=== PATIENT | male | born 1965 | race Caucasian/White ===

== ENCOUNTER → 2023-02-09 18:27 | Outpatient (CLI) | payer MEDICAID, SELFPAY ==
[2023-02-09 17:06] LABS: Alanine Aminotransferase 36 U/L (12-78); Albumin Level 4.7 g/dl (3.5-5.0); Albumin/Globulin Ratio 2.2 (1.1-1.8); Alkaline Phosphatase 151 U/L (38-126); Anion Gap 18.2 mEq/L (5-15); Aspartate Amino Transferase 33 U/L (17-59); Bilirubin,Total 0.5 mg/dl (0.2-1.3); Blood Urea Nitrogen 22 mg/dl (9-20); Calcium 8.8 mg/dl (8.4-10.2); Carbon Dioxide 24 mmol/L (22.0-30.0); Chloride 99 mmol/L (98-107); Chol/HDL Ratio 4.8 (1-3.5); Cholesterol 213 mg/dl (140-200); Estimated Glomerular Filt Rate 87 ml/min (>60); GFR (African American) 106 ML/MIN (>60); Globulin 2.1 g/dL (1.3-3.2); Glucose 95 mg/dl (74-100); HDL Cholesterol 44 mg/dl (40-60); Potassium 4.2 mmoL/L (3.5-5.1); Sodium 137 mmol/L (136-145); Total Protein,Serum 6.8 g/dl (6.3-8.2)
[2023-02-09 17:13] LABS: Basophils % 0.5 % (0.1-2.0); Eosinophils # 0.1 K/mm3 (0.0-0.4); Eosinophils % 1.8 % (0.1-12.0); Hematocrit 41.5 % (42.0-52.0); Lymphocytes # 1.8 K/mm3 (0.7-4.5); Lymphocytes % 29.3 % (10-50); Mean Corpuscular HGB Conc 33.7 g/dL (31.8-35.4); Mean Corpuscular Hemoglobin 29.6 pg (27.0-31.2); Mean Corpuscular Volume 87.8 fl (80-94); Mean Platelet Volume 8.7 fl (7.4-10.4); Monocytes # 0.3 K/mm3 (0.1-1.0); Monocytes % 4.3 % (1.7-9.3); Neutrophils # 3.9 K/mm3 (1.8-7.8); Neutrophils % 64.1 % (37.0-80.0); Platelet Count 169 K/mm3 (142-424); Red Blood Count 4.73 M/mm3 (4.60-6.20); Red Cell Distribution Width 13.9 % (11.5-17.5)
[2023-02-09 17:17] LABS: Direct LDL Cholesterol 81.13 mg/dL (100-129)
[2023-02-09 17:33] LABS: Triglycerides 503 mg/dl (30-150)
[2023-02-09 17:58] LABS: Hemoglobin A1C 5.9 % (4.0-6.0)
== END ==
LOC: LAB.DROPOF 18:27
PROVIDERS: PCP Family Medicine; Visit Provider Family Medicine
DX: E78.5 Hyperlipidemia, unspecified (principal)
CPT/HCPCS: 80053; 80061; 83036; 85025

== ENCOUNTER 2023-10-19 16:46 | Outpatient (CLI) | payer MEDICAID, SELFPAY ==
[2023-10-19 16:24] LABS: Basophils % 0.6 % (0.1-2.0); Eosinophils # 0.1 K/mm3 (0.0-0.4); Eosinophils % 1.9 % (0.1-12.0); Hematocrit 42.1 % (42.0-52.0); Hemoglobin 14.3 g/dL (14.1-18.0); Lymphocytes # 1.7 K/mm3 (0.7-4.5); Lymphocytes % 28.4 % (10-50); Mean Corpuscular Hemoglobin 30.2 pg (27.0-31.2); Mean Platelet Volume 9.7 fl (7.4-10.4); Monocytes # 0.3 K/mm3 (0.1-1.0); Monocytes % 4.8 % (1.7-9.3); Neutrophils # 3.9 K/mm3 (1.8-7.8); Neutrophils % 64.4 % (37.0-80.0); Platelet Count 135 K/mm3 (142-424); Red Blood Count 4.72 M/mm3 (4.60-6.20)
[2023-10-19 16:37] LABS: Alanine Aminotransferase 27 U/L (12-78); Albumin Level 4.7 g/dl (3.5-5.0); Alkaline Phosphatase 91 U/L (38-126); Anion Gap 11.9 mEq/L (5-15); Aspartate Amino Transferase 29 U/L (17-59); Bilirubin,Total 0.4 mg/dl (0.2-1.3); Blood Urea Nitrogen 21 mg/dl (9-20); Calcium 8.8 mg/dl (8.4-10.2); Carbon Dioxide 27 mmol/L (22.0-30.0); Chloride 107 mmol/L (98-107); Chol/HDL Ratio 9.4 (1-3.5); Cholesterol 254 mg/dl (140-200); Estimated Glomerular Filt Rate 69 ml/min (>60); GFR (African American) 83 ML/MIN (>60); Globulin 2.3 g/dL (1.3-3.2); Glucose 100 mg/dl (74-100); HDL Cholesterol 27 mg/dl (40-60); Potassium 4.9 mmoL/L (3.5-5.1); Sodium 141 mmol/L (136-145)
[2023-10-19 16:45] LABS: Triglycerides 638 mg/dl (30-150)
[2023-10-19 17:11] LABS: Hemoglobin A1C 5.6 % (4.0-6.0)
== END 2023-10-19 23:59 ==
LOC: LAB.DROPOF 16:46
PROVIDERS: PCP Family Medicine; Visit Provider Family Medicine
DX: E78.5 Hyperlipidemia, unspecified (principal)
CPT/HCPCS: 80053; 80061; 83036; 85025

== ENCOUNTER 2024-02-04 18:00 | Outpatient (CLI) | payer MEDICAID, SELFPAY ==
[2024-02-04 16:30] LABS: Alanine Aminotransferase 27 U/L (12-78); Albumin Level 4.6 g/dl (3.5-5.0); Albumin/Globulin Ratio 2.2 (1.1-1.8); Alkaline Phosphatase 100 U/L (38-126); Anion Gap 10.5 mEq/L (5-15); Aspartate Amino Transferase 33 U/L (17-59); Bilirubin,Total 0.5 mg/dl (0.2-1.3); Blood Urea Nitrogen 22 mg/dl (9-20); Calcium 9.2 mg/dl (8.4-10.2); Carbon Dioxide 25 mmol/L (22.0-30.0); Chloride 112 mmol/L (98-107); Chol/HDL Ratio 4.3 (1-3.5); Cholesterol 175 mg/dl (140-200); Estimated Glomerular Filt Rate 69 ml/min (>60); GFR (African American) 83 ML/MIN (>60); Globulin 2.1 g/dL (1.3-3.2); Glucose 108 mg/dl (74-100); HDL Cholesterol 41 mg/dl (40-60); Potassium 4.5 mmoL/L (3.5-5.1); Sodium 143 mmol/L (136-145); Total Protein,Serum 6.7 g/dl (6.3-8.2); Triglycerides 297 mg/dl (30-150); VLDL Cholesterol 59 mg/dL (0-40)
[2024-02-04 16:41] LABS: Direct LDL Cholesterol 82.74 mg/dL (100-129)
[2024-02-04 17:37] LABS: Hemoglobin A1C 5.9 % (4.0-6.0)
== END 2024-02-04 23:59 | disposition home or self-care (01) ==
LOC: LAB.DROPOF 02-05 12:54
PROVIDERS: PCP Family Medicine; Visit Provider Family Medicine
DX: E78.5 Hyperlipidemia, unspecified (principal); Z79.899 Other long term (current) drug therapy
CPT/HCPCS: 80053; 80061; 83036

== ENCOUNTER 2024-04-24 08:50 | Emergency (ER) | payer MEDICAID, SELFPAY ==
[2024-04-24 09:03] VITALS: BP 147/96; PULSE 68; RESP 16; TEMP 36.3; O2SAT 98; BMI 26.4
[2024-04-24 09:15] VITALS: PULSE 66; O2SAT 96
[2024-04-24 09:31] VITALS: BP 122/85; PULSE 62; O2SAT 96
[2024-04-24] MEDS: FLUORESCEIN SODIUM 1MG STRIP 1 MG OP (09:41)
[2024-04-24] MEDS: TET/DIPHTH/PERT-ADULT 0.5ML SYRINGE 0.5 ML IM (09:41)
[2024-04-24] MEDS: TETRACAINE 0.5% OPTH SOL 15ML OP (09:41)
[2024-04-24] MEDS: NEOMYCIN-BACIT-POLYM OPHTH OINT 3.5GM TUBE OP (09:42)
[2024-04-24 09:48] VITALS: BP 122/85; PULSE 63; RESP 16; TEMP 36.3; O2SAT 98
--- NOTE | 2024-04-24 11:16 | ED_ITS ---
Discharge Plan Disposition Patient Disposition: Home, Self-Care Condition: Good Prescriptions Prescriptions: No Action omega 0-dor-ywo-fish oil [Fish Oil] 1,000 mg (120 mg-180 mg) capsule 1 cap PO TID buspirone 10 mg tablet 10 mg PO BID Qty: 180 2RF Zyrtec 10 mg capsule 10 mg PO DAILY PRN (Reason: allergies) 90 Days Qty: 90 2RF diclofenac sodium 75 mg tablet,delayed release (DR/EC) 75 mg PO BID 90 Days Qty: 180 0RF fluticasone propionate 50 mcg/actuation spray,suspension 1 spray intranasal DAILY 30 Days Qty: 16 3RF Rx Instructions: administer into each nostril gemfibrozil 600 mg tablet 600 mg PO BID Qty: 180 2RF omeprazole 40 mg capsule,delayed release(DR/EC) 40 mg PO DAILY Qty: 90 2RF sertraline 100 mg tablet 100 mg PO DAILY Qty: 90 2RF simvastatin 80 mg tablet 80 mg PO HS 90 Days Qty: 90 0RF tizanidine 2 mg tablet 2 mg PO TID PRN (Reason: muscle spasticity) 30 Days Qty: 90 2RF Referrals Follow up/Referrals: Ruben Estes MD [Primary Care Provider] - See instructions Activity Restrictions/Add. Instructions Additional Instructions/Restrictions: You were evaluated in the emergency department. You had a metallic foreign body in your left eye. You have a residual rust ring. Please use your antibiotic ointment provided to you in your left eye every 6 hours while awake. Use this for the next 4 days or until cleared by an eye doctor. Take Tylenol and ibuprofen at home as needed for pain. Return to the emergency department for new or worsening symptoms, such as significant worsening of pain, visual disturbance, or other concerns. You can follow up with whoever you would like, but one option is Dr. Franks - [address] [place] [address] - Clinical Impressions Clinical Impression: Foreign body of left eye, Corneal rust ring of left eye Stand Alone Forms Stand Alone Forms: Work/School Release Instructions Patient Instructions: DI for Corneal Foreign Body-Eye Discharge ED Provider: Malika Shannon General Adult HPI General Chief complaint: Eye Problems Stated complaint: something in eye 04/22 left eye pain/sweeling/red Time Seen by Provider: 04/24/24 09:11 Mode of Arrival: Ambulatory Source of Information: Patient and Spouse Limitations: No Limitations Description of Symptoms (Recalled from ER Triage Doc. by RN): pt states he was working in his shop on Thursday and thinks he got something in his L eye. pt c/o photophobia and states that he has flushed it without any relief. he took some tylenol around 0300 without any relief. pt is unsure when his last tetnus vaccine was. pt declines receiving one today. History of Present Illness HPI narrative: This patient is a 59-year-old male with a history of hyperlipidemia and depression presenting to the emergency department for evaluation with concern for foreign body in his left eye. He notes that he has flushed his eye at home with no relief. This has been going on for approximately 3 days. He states he started to develop some light sensitivity. No visual disturbance noted. He was working with metal in his shop, so he thinks that it is a piece of metal in his eye. He is unsure when his last tetanus shot was. Related Data Home Medications Medication Instructions Recorded Confirmed omega 3-bup-mdo-fish oil 1,000 mg 1 cap PO TID 06/13/22 02/04/24 (120 mg-180 mg) capsule (Fish Oil) Previous Rx's Medication Instructions Recorded buspirone 10 mg tablet 10 mg PO BID #180 tabs 02/04/24 cetirizine 10 mg capsule (Zyrtec) 10 mg PO DAILY PRN allergies 90 02/04/24 days #90 caps diclofenac sodium 75 mg 75 mg PO BID 90 days #180 tabs 02/04/24 tablet,delayed release fluticasone propionate 50 1 spray intranasal DAILY 30 days 02/04/24 mcg/actuation nasal #16 grams spray,suspension gemfibrozil 600 mg tablet 600 mg PO BID #180 tabs 02/04/24 omeprazole 40 mg capsule,delayed 40 mg PO DAILY #90 caps 02/04/24 release sertraline 100 mg tablet 100 mg PO DAILY #90 tabs 02/04/24 simvastatin 80 mg tablet 80 mg PO HS 90 days #90 tabs 02/04/24 tizanidine 2 mg tablet 2 mg PO TID PRN muscle spasticity 04/04/24 30 days #90 tabs Allergies Allergy/AdvReac Type Severity Reaction Status Date / Time No Known Allergies Allergy Verified 04/24/24 09:16 [facility] Disclaimer: The information contained in this section may have been updated after the patient was seen, as this information can be updated by other users. Medical History Depression Anxiety Chronic GERD Hypertension Hyperlipidemia Surgical History Previous back surgery H/O hernia repair History of tonsillectomy Family History Mother Coronary artery disease Social History Smoking Status: Never smoker alcohol intake: never current occupational status: retired Travel in the last 8 weeks: None ROS Obtained: Yes All systems reviewed & no additional complaints except as documented Physical Exam General General appearance: alert and in no apparent distress Head Head exam: atraumatic and normocephalic Eye Eye exam: Present PERRL, EOMI and conjunctival injection Expanded Eye Exam Slit lamp exam: performed Eyelids: bilateral: normal inspection Pupils: Bilateral: regular, round Sclera/Conjunctival: left: foreign body Anterior chamber: bilateral: normal inspection Both Eyes Image: 2 1. Small metallic foreign body IOP (R) in mmH IOP (L) in mmH ENT ENT exam: Present normal exam, normal oropharynx, mucous membranes moist and normal external ear exam Neck Neck exam: Present normal inspection, full ROM and trachea midline; Absent tenderness Chest Chest inspection: Present normal inspection and symmetric chest wall rise; Absent tenderness Respiratory Respiratory exam: Present normal lung sounds bilaterally; Absent respiratory distress, wheezes, stridor or accessory muscle use Cardiovascular Cardiovascular exam: Present regular rate and normal rhythm Abdominal Exam Abdominal exam: Present soft; Absent distention, tenderness or guarding Extremities Exam Extremities exam: Present normal inspection, full ROM and normal capillary refill; Absent tenderness or edema Back Exam Back exam: Present normal inspection and full ROM; Absent tenderness Neurological Exam Neurological exam: Present alert, oriented X3, CN II-XII intact and normal gait; Absent motor sensory deficit Psychiatric Psychiatric exam: Present normal affect and normal mood Skin Skin exam: Present warm and dry Medical Decision Making Medical Records Medical records reviewed: Yes I reviewed the patient's medical records. Manuel Inquiry Pt receiving controlled substance: No Vital Signs: 04/24/24 09:03 04/24/24 09:15 04/24/24 09:31 Temperature 97.4 F L Temperature Source Oral Pulse Rate 66 62 Pulse Rate [Left] 68 Respiratory Rate 16 Blood Pressure 122/85 Blood Pressure [Right Arm] 147/96 H Blood Pressure Mean [Right Arm] 113 Blood Pressure Source [Right Arm] Automatic Cuff Blood Pressure Position [Right Arm] Sitting 02 Sat by Pulse Oximetry 98 96 96 Oxygen Delivery Method Room Air Room Air 04/24/24 09:48 Temperature 97.4 F L Temperature Source Pulse Rate 63 Pulse Rate [Left] Respiratory Rate 16 Blood Pressure 122/85 Blood Pressure [Right Arm] Blood Pressure Mean [Right Arm] Blood Pressure Source [Right Arm] Blood Pressure Position [Right Arm] 02 Sat by Pulse Oximetry Oxygen Delivery Method Room Air Lab Data Lab results reviewed: Yes I reviewed the patient's lab results. Orders (Tests/Meds): ED MEDICATIONS Discontinued Medications Generic Name Dose Route Start Last Admin Trade Name Ashia PRN Reason Stop Dose Admin Fluorescein Sodium 1 mg 04/24/24 09:31 04/24/24 09:41 Fluorescein Sodium 1mg Strip OP 04/24/24 09:32 1 mg ONCE ONE Administration Neomycin/Polymyxin/Bacitracin 0 gm 04/24/24 09:31 04/24/24 09:42 Upfjmpel-Qlpaf-Gjnmk Ophth Oint 3.5gm Tube OP 04/24/24 09:32 3.5 gm ONCE ONE Administration Tetanus/Reduced Diphtheria/Acell Pertussis 0.5 ml 04/24/24 09:25 04/24/24 09:41 Tet/Diphth/Pert-Adult 0.5ml Syringe IM 04/24/24 09:26 0.5 ml .ONCE ONE Administration Tetracaine HCl 0 ml 04/24/24 09:31 04/24/24 09:41 Tetracaine 0.5% Opth Priya 15ml OP 04/24/24 09:32 1 ml ONCE ONE Administration Medical Decision Narrative: In summary, this patient is a 59-year-old male presenting to the Emergency Department for evaluation of foreign body in his left eye. Differential diagnoses considered include but are not limited to metallic foreign body, rust ring, corneal abrasion, corneal ulceration, endophthalmitis. Ruling out the most morbid conditions drove assessment. On exam, the patient is well-appearing. He has normal vision. He has normal intraocular pressures. I did stain his eyes with fluorescein and noted scattered uptake of the left cornea but no large abrasions or ulcerations. His foreign body was successfully removed with a 25-gauge needle after informed consent was obtained. Patient tolerated this well with no complications. He did have residual rust ring, which I was not able to completely remove. Given this, I feel he would benefit from very close follow-up with an eye doctor. I gave patient instructions for this. He was given Tdap booster here and he was also given ophthalmic antibiotic ointment to take home. Given reassuring exam, he is to be appropriate for discharge with instructions for use of the antibiotic ointment and supportive management as well as close follow-up. Strict return precautions were given, and he was discharged after all questions were answered. Procedures Risk/Benefits of Procedure(s) Were Explained: Yes Foreign Body Removal Time Out Performed: Yes Site: other (Left eye) Description of foreign body: other (Piece of metal) Sedation/Analgesia: none Technique: other (Removal with a 25-gauge needle) Confirmed by:: direct visualization Complications: none Post-procedure exam: awake, alert, normal BP, normal HR and normal O2 sat Neurovascular: no change from pre-procedure Critical Care Critical Care Time Critical Care Time: No
== END 2024-04-24 09:48 | disposition home or self-care (01) ==
PROVIDERS: Emergency Provider Emergency Medicine; PCP Family Medicine
DX: T15.92XA Foreign body on external eye, part unspecified, left eye, initial encounter (principal); H16.022 Ring corneal ulcer, left eye; W44.E0XA Non-magnetic metal object unspecified, entering into or through a natural orifice, initial encounter; Z23 Encounter for immunization
CPT/HCPCS: 65220; 90471; 90715; 99283

== ENCOUNTER 2024-10-19 09:50 | Outpatient (CLI) | payer MEDICAID, SELFPAY ==
[2024-10-19 16:36] LABS: Basophils % 0.8 % (0.1-2.0); Eosinophils # 0.1 K/mm3 (0.0-0.4); Eosinophils % 1.3 % (0.1-12.0); Hematocrit 39.7 % (42.0-52.0); Hemoglobin 13.7 g/dL (14.1-18.0); Lymphocytes # 1.8 K/mm3 (0.7-4.5); Lymphocytes % 38.5 % (10-50); Mean Corpuscular HGB Conc 34.5 g/dL (31.8-35.4); Mean Corpuscular Hemoglobin 31.3 pg (27.0-31.2); Mean Corpuscular Volume 90.6 fl (80-94); Mean Platelet Volume 11.9 fl (7.4-10.4); Monocytes # 0.3 K/mm3 (0.1-1.0); Monocytes % 6.8 % (1.7-9.3); Neutrophils # 2.5 K/mm3 (1.8-7.8); Neutrophils % 52.4 % (37.0-80.0); Platelet Count 133 K/mm3 (142-424); Red Blood Count 4.38 M/mm3 (4.60-6.20); Red Cell Distribution Width 14.4 % (11.5-17.5); White Blood Count 4.7 K/mm3 (4.8-10.8)
[2024-10-19 16:56] LABS: Albumin Level 5.5 g/dl (3.5-5.0); Chloride 103 mmol/L (98-107); Potassium 4.6 mmoL/L (3.5-5.1); Sodium 139 mmol/L (136-145)
[2024-10-19 16:59] LABS: Alanine Aminotransferase 22 U/L (12-78); Albumin/Globulin Ratio 2.8 (1.1-1.8); Alkaline Phosphatase 90 U/L (38-126); Anion Gap 15.6 mEq/L (5-15); Aspartate Amino Transferase 30 U/L (17-59); Bilirubin,Total 0.6 mg/dl (0.2-1.3); Blood Urea Nitrogen 34 mg/dl (9-20); Carbon Dioxide 25 mmol/L (22.0-30.0); Cholesterol 180 mg/dl (140-200); Estimated Glomerular Filt Rate 69 ml/min (>60); GFR (African American) 83 ML/MIN (>60); Glucose 76 mg/dl (74-100); Total Protein,Serum 7.5 g/dl (6.3-8.2); Triglycerides 157 mg/dl (30-150); VLDL Cholesterol 31 mg/dL (0-40)
[2024-10-19 17:00] LABS: Chol/HDL Ratio 3.9 (1-3.5); HDL Cholesterol 46 mg/dl (40-60)
[2024-10-19 17:10] LABS: Hemoglobin A1C 5.6 % (4.0-6.0)
[2024-10-19 17:16] LABS: Direct LDL Cholesterol 95.09 mg/dL (100-129)
[2024-10-19 18:21] LABS: Prostate Specific Ag Screen 0.3 ng/ml (0.0-4.0)
[2024-10-19 18:37] LABS: Thyroid Stimulating Hormone 1.69 uIU/mL (0.465-4.68)
== END 2024-10-19 23:59 | disposition home or self-care (01) ==
LOC: LAB.DROPOF 10-20 11:20
PROVIDERS: PCP Family Medicine; Visit Provider Family Medicine
DX: E78.5 Hyperlipidemia, unspecified (principal); Z12.5 Encounter for screening for malignant neoplasm of prostate
CPT/HCPCS: 80053; 80061; 83036; 84443; 85025; G0103

== ENCOUNTER 2025-01-09 09:51 | Day surgery (SDC) | payer MEDICAID, SELFPAY ==
[2025-01-09 09:56] VITALS: BMI 27.1
[2025-01-09 10:13] VITALS: BP 119/64; PULSE 64; RESP 16; TEMP 36.3; O2SAT 97
[2025-01-09] MEDS: LACTATED RINGERS 1000ML 1,000 ML 50 ML IV (10:18)
--- NOTE | 2025-01-09 10:33 | P.PNANES_ITS ---
[facility] Disclaimer: The information contained in this section may have been updated after the patient was seen, as this information can be updated by other users. Medical History Depression Anxiety Chronic GERD Hypertension Hyperlipidemia Surgical History Previous back surgery H/O hernia repair History of tonsillectomy Family History Mother Coronary artery disease Social History Smoking Status: Never smoker alcohol intake: never substance use type: denies use current occupational status: retired Travel in the last 8 weeks: None Have you lived/traveled outside US in past 30 days?: No Contact w/someone who lives/traveled outside US past 30 days?: No Exposure to someone with infectious disease in past 14 days?: No Do you have a fever (greater than 100.4 F or 38 C)?: No Have you tested positive for COVID-19: No Exposed to someone with COVID-19 in past 14 days?: No Do you have a sore throat?: No Do you have a cough?: No Do you have any weakness?: No Do you have any diarrhea?: No Are you experiencing any unusual bleeding?: No Do you have any muscle aches/pain?: No Do you have any abdominal pain?: No Are you experiencing loss of taste or smell?: No [facility] Anesthesia Checklist Patient Identification Patient Identification: Arm Band Structural Data Admitted From: Home Planned Operative Procedure/s: EGD Consent for Planned Operative Procedure(s) Verified: Yes Verified Documents: Surgical Consent and History and Physical NPO Status Verified Time NPO: 00:00 Additional verifications Anesthesia Reactions: No Airway Assessment Mallampati Score:: Class II C-Spine Mobility Assessed: Yes TMJ Mobility Assessed: Yes Dentition: Good Dentition Neurological Assessment Level of Consciousness: Awake, Alert and Appropriate Anesthesia Plan Anesthesia Risk discussed: Yes Anesthesia Plan: Verified ASA Class: II Anesthesia Type: MAC
--- NOTE | 2025-01-09 11:36 | EXP.HP ---
History of Present Illness *Admission Date: 01/09/25 *Reason for visit:: Dyspepsia and GERD *History of present illness: Mr. Diego is a 59-year-old gentleman who is here for diagnostic EGD secondary to dyspepsia and GERD. The examination is deemed medically necessary for diagnostic EGD. The patient has been seen, interviewed and examined prior to the procedure by both myself and the anesthesia provider. [facility] Disclaimer: The information contained in this section may have been updated after the patient was seen, as this information can be updated by other users. Medical History Depression Anxiety Chronic GERD Hypertension Hyperlipidemia Surgical History Previous back surgery H/O hernia repair History of tonsillectomy Family History Mother Coronary artery disease Social History Smoking Status: Never smoker alcohol intake: never substance use type: denies use current occupational status: retired Travel in the last 8 weeks: None Have you lived/traveled outside US in past 30 days?: No Contact w/someone who lives/traveled outside US past 30 days?: No Exposure to someone with infectious disease in past 14 days?: No Do you have a fever (greater than 100.4 F or 38 C)?: No Have you tested positive for COVID-19: No Exposed to someone with COVID-19 in past 14 days?: No Do you have a sore throat?: No Do you have a cough?: No Do you have any weakness?: No Do you have any diarrhea?: No Are you experiencing any unusual bleeding?: No Do you have any muscle aches/pain?: No Do you have any abdominal pain?: No Are you experiencing loss of taste or smell?: No Other Medical History Have you received the Pneumonia Vaccine: No Review of Systems Review of Systems Review of systems (narrative): Negative *Cardiovascular Comments: Negative *Gastrointestinal Comments: Negative *Genitourinary Comments: Negative *Musculoskeletal Comments: Negative *Neurologic Comments: Negative Meds Home Medications and Allergies Home Medications ?Medication ?Instructions ?Recorded ?Confirmed ?Type omega 4-vqo-ins-fish oil 1,000 mg 1 cap PO TID 06/13/22 01/09/25 History (120 mg-180 mg) capsule (Fish Oil) buspirone 10 mg tablet 10 mg PO BID #180 tabs 10/28/24 01/09/25 Rx cetirizine 10 mg capsule (Zyrtec) 10 mg PO DAILY PRN allergies 90 10/28/24 01/09/25 Rx days #90 caps diclofenac sodium 75 mg 75 mg PO BID 90 days #180 tabs 10/28/24 01/09/25 Rx tablet,delayed release gemfibrozil 600 mg tablet 600 mg PO BID #180 tabs 10/28/24 01/09/25 Rx omeprazole 40 mg capsule,delayed 40 mg PO DAILY #90 caps 10/28/24 01/09/25 Rx release sertraline 100 mg tablet 100 mg PO DAILY #90 tabs 10/28/24 01/09/25 Rx simvastatin 80 mg tablet 80 mg PO HS 90 days #90 tabs 10/28/24 01/09/25 Rx fluticasone propionate 50 1 spray intranasal DAILY PRN 11/10/24 01/09/25 History mcg/actuation nasal Allergy Symptoms spray,suspension tizanidine 2 mg tablet See Rx Instructions .Route 12/30/24 01/09/25 Rx .COMPLEX #90 tabs New Prescriptions to Start Prescriptions: Allergies Allergy/AdvReac Type Severity Reaction Status Date / Time No Known Allergies Allergy Verified 01/09/25 10:09 Exam Data for Last 24 hours Vital signs and Labs for Last 24 Hours: Temp Pulse Resp BP Pulse Ox O2 Del Method 97.4 F L 64 16 119/64 97 Room Air 01/09/25 10:13 01/09/25 10:13 01/09/25 10:13 01/09/25 10:13 01/09/25 10:13 01/09/25 10:13 I & O for Last 24 hours: Intake & Output 01/06/25 01/07/25 01/08/25 01/09/25 23:59 23:59 23:59 23:59 Weight 194 lb 0.108 oz *Routine HEENT Exam Head: Present normocephalic Eye: Present EOMI and PERRL ENT: Present mucous membranes moist *Routine Neck Exam Neck: Present supple *Routine Respiratory Exam Respiratory: Present CTA bilaterally *Routine Cardiovascular Exam Cardiovascular: Present RRR *Routine Abdominal Exam Abdominal: Present soft and normoactive bowel sounds; Absent tenderness *Routine Rectal Exam Rectal:: deferred *Routine Genitalia Exam Genitalia:: deferred *Routine Extremities Exam Extremities: Absent cyanosis, clubbing or edema *Routine Skin Exam Skin: Present warm; Absent rash *Routine Neurological Exam Neurological: Present alert and oriented X3 Assessment and Plan *Assessment and plan (1) Epigastric pain: Status: Acute Category: Medical Code(s): R10.13 - Epigastric pain (2) Heartburn: Status: Acute Category: Medical Code(s): R12 - Heartburn (3) Chronic GERD: Status: Acute Category: Medical Code(s): K21.9 - Gastro-esophageal reflux disease without esophagitis Plan A/P: 1. Dyspepsia, heartburn, chronic GERD and bloating is the preprocedural diagnosis. The patient will be anesthetized/sedated using MAC sedation. The patient has been seen and examined. Cardiac and lung assessment prior to the examination is stable. Proceed with planned diagnostic EGD
--- NOTE | 2025-01-09 11:49 | P.PCN_ITS ---
[facility] Procedure Note Date: 01/09/25 Time: 11:57 Procedure Note:: Upper Endoscopy Procedure Report: Esophagogastroduodenoscopy with cold biopsies and TTS balloon dilation Endoscopost: Aquilino Regan II, MD Referring Physician: Ruben Estes MD Date of Procedure: January 09, 2025 Equipment: Olympus GIF 190 standard upper endoscope Sedation: MAC sedation Indications: Mr. Diego is a 59-year-old gentleman with longstanding GERD and dyspepsia. He was diagnosed with GERD and a hiatal hernia in the early s more than 30 years ago. The patient does state that his symptoms have gradually worsened. He does report bloating and occasional early satiety. He reports no nausea. He also reports occasional dysphagia to breads and pretzels. He has been on omeprazole 40 mg daily and if he forgets to take this he immediately gets heartburn. He has been on diclofenac twice daily for 5 to 6 years. He always elevates the head of his bed at nighttime. He does have some obstipation/constipation and may skip a couple of days without a bowel movement. He has not improved since starting Citrucel. He does have straining and incomplete defecation with excessive wiping. He reports no nausea. He is a little bit concerned about long-term PPI therapy. Procedure: Prior to the procedure, a history and physical exam was performed, and patient's medications and allergies were reviewed. The risks, benefits and alternatives of the sedation and procedure were discussed with the patient. All questions were answered and informed consent was obtained. The patient was brought to the procedure room. Patient identification and proposed procedure were verified by the physician and the nurse. The patient was placed in a left lateral decubitus position and the scope was passed under direct vision. Throughout the procedure, the patient's blood pressure, pulse, and oxygen saturations were monitored continuously. The upper GI endoscopy was accomplished without difficulty. The patient tolerated the procedure well. Findings: The scope was passed directly into the upper esophagus and advanced to the third portion of the duodenum. The post bulbar duodenum and duodenal bulb were normal with normal mucosa and conniventes. The scope was withdrawn through a normal duodenal bulb and pylorus into the stomach. There was linear reactive gastropathy of the antrum. The body and fundus of the stomach were normal. Upon retroflexion there was a very small 1 to 2 cm sliding hiatal hernia. Biopsies were taken from the antrum. The scope was then withdrawn into the esophagus. There was no evidence of reflux esophagitis or Smallwood's. Biopsies were taken from the GE junction. There were tertiary contractions and evidence of mild esophageal dysmotility. The entire esophagus was dilated to 60 Mongolian/20 mm with a TTS hydrostatic balloon. There was no resistance. The remainder of the esophageal mucosa was normal. Impression: 1. Nonerosive GERD with mild esophageal dysmotility and very small sliding 1 to 2 cm hiatal hernia 2. Linear reactive gastropathy of antrum (mild) Plan: I will follow-up the biopsies. The patient does have functional dyspepsia and functional GERD. I do feel that most of his symptoms of dyspepsia are related to and driven by lower intestinal gas pressure gradients/high gas pressure buildup resulting in backflow of bile and peptic fluid from the duodenum into the stomach (duodenal reflux). This gas production (carbon dioxide, hydrogen, methane, etc.) from the lower intestinal tract is the byproduct of colonic bacterial fermentation. This colonic fermentation occurs when there is more carbohydrate (dietary starches, sugars and high residue plant fiber) substrate that does not get digested (in the middle or small intestine) or occurs when there is colonic fecal buildup and colonic bacterial overgrowth. This indeed leads to bloating and the gas pressure buildup with gas pressure gradients that do drive backflow, reflux and dyspepsia. I would encourage a fiber bowel regimen (combined MiraLAX plus Citrucel) and ccrb-hbc-kxyxkle herbal Iberogast twice daily. We will discuss additional dietary measures and treatment options.
[2025-01-09 12:03] VITALS: BP 99/64; PULSE 60; RESP 16; TEMP 36.2; O2SAT 93
[2025-01-09 12:13] VITALS: BP 111/71; PULSE 58; RESP 16; TEMP 36.2; O2SAT 95
[2025-01-09 12:23] VITALS: BP 121/77; PULSE 60; RESP 16; TEMP 36.2; O2SAT 95
[2025-01-09 12:33] VITALS: BP 116/79; PULSE 60; RESP 16; TEMP 36.2; O2SAT 95
[2025-01-09 12:43] VITALS: BP 121/81; PULSE 62; RESP 16; TEMP 36.2; O2SAT 97
== END 2025-01-09 12:43 | disposition home or self-care (01) ==
PROVIDERS: PCP Family Medicine; Visit Provider Internal Medicine Gastroenterology
PROC: 0DJ08ZZ Inspection of Upper Intestinal Tract, Via Natural or Artificial Opening Endoscopic (ICD-10-PCS; CPT 43239; principal; 2025-01-09 11:30)
DX: R13.10 Dysphagia, unspecified (principal); K31.9 Disease of stomach and duodenum, unspecified; K44.9 Diaphragmatic hernia without obstruction or gangrene; K22.4 Dyskinesia of esophagus; R10.13 Epigastric pain; K21.9 Gastro-esophageal reflux disease without esophagitis; R14.0 Abdominal distension (gaseous); R68.81 Early satiety
CPT/HCPCS: 43239; 43249; C1726; J7120

== ENCOUNTER 2025-04-21 09:23 | Outpatient (CLI) | payer MEDICAID, SELFPAY ==
[2025-04-21 17:41] LABS: Hematocrit 40.1 % (42.0-52.0); Hemoglobin 14.2 g/dL (14.1-18.0); Immature Granulocytes % 0.2 %; Mean Corpuscular HGB Conc 35.4 g/dL (31.8-35.4); Mean Corpuscular Hemoglobin 32.3 pg (27.0-31.2); Mean Corpuscular Volume 91.1 fl (80-94); Nucleated Red Blood Cells % 0 %; Platelet Count 124 K/mm3 (142-424); Red Blood Count 4.40 M/mm3 (4.60-6.20); Red Cell Distribution Width-SD 43.8 fL; White Blood Count 4.2 K/mm3 (4.8-10.8)
[2025-04-21 18:13] LABS: Alanine Aminotransferase 19 U/L (12-78); Albumin Level 5.0 g/dl (3.5-5.0); Albumin/Globulin Ratio 2.3 (1.1-1.8); Alkaline Phosphatase 87 U/L (38-126); Anion Gap 13.6 mEq/L (5-15); Aspartate Amino Transferase 23 U/L (17-59); Bilirubin,Total 0.5 mg/dl (0.2-1.3); Blood Urea Nitrogen 21 mg/dl (9-20); Calcium 9.9 mg/dl (8.4-10.2); Carbon Dioxide 25 mmol/L (22.0-30.0); Chloride 107 mmol/L (98-107); Creatinine,Serum 1.00 mg/dl (0.66-1.25); Estimated Glomerular Filt Rate 76 ml/min (>60); GFR (African American) 93 ML/MIN (>60); Globulin 2.2 g/dL (1.3-3.2); Glucose 111 mg/dl (74-100); HDL Cholesterol 34 mg/dl (40-60); Potassium 4.6 mmoL/L (3.5-5.1); Total Protein,Serum 7.2 g/dl (6.3-8.2)
[2025-04-21 18:29] LABS: Cholesterol 351 mg/dl (140-200); Triglycerides 661 mg/dl (30-150)
[2025-04-21 18:30] LABS: Sodium 139 mmol/L (136-145)
[2025-04-21 18:43] LABS: Thyroid Stimulating Hormone 0.72 uIU/mL (0.465-4.68)
[2025-04-23 11:14] LABS: Hepatitis B Surface Antigen Negative (Negative)
--- OUTSIDE RECORDS SUMMARY | 2025-04-24 10:31 | XMS_ITS | Clinical Summary ---
Author Organization Healthcare Address [address] [place] [address] Care Team Providers Care Farmworker [employer] Name Role Phone Nilsa Zambrano Primary Care Provider [phone] Family History Medical History Relation Name Comments Stroke Other Relation Name Status Comments Other Social History Tobacco Use Types Packs/Day Years Used Date Smoking Tobacco: Never Sex and Gender Information Value Date Recorded Sex Assigned at Not on file Legal Sex Male 6:20 PM EDT Gender Identity Not on file Sexual Orientation Not on file Last Filed Vital Signs Vital Sign Reading Time Taken Comments Blood Pressure - - Pulse - - Temperature - - Respiratory Rate - - Oxygen Saturation - - Inhaled Oxygen Concentration - - Weight 97.1 kg (214 lb) 12/31/2016 1:11 PM EDT Height 182.9 cm (6') 12/31/2016 1:11 PM EDT Body Mass Index 29.02 12/31/2016 1:11 PM EDT Plan of Treatment Not on file Care Teams [employer]worker [employer] Relationship Specialty Start Date End Date Nilsa Zambrano PA [address] [place] [address] PCP - General 02/15/21
--- OUTSIDE RECORDS SUMMARY | 2025-04-24 10:31 | XMS_ITS | Clinical Summary ---
Author Organization [facility] Address [address] [place] [address] Care Team Providers Care Parking Patroller Name Role Phone Lukas Yu MD Primary Care Provider [phone] Social History Tobacco Use Types Packs/Day Years Used Date Smoking Tobacco: Never Assessed Sex and Gender Information Value Date Recorded Sex Assigned at Not on file Legal Sex Male 4:42 PM EST Gender Identity Not on file Sexual Orientation Not on file Plan of Treatment Health Maintenance Due Date Last Done Comments CT Colonography 1966 Colonoscopy 1966 Colorectal Cancer Screening 1966 FIT-DNA 1966 FIT 1966 FOBT 1966 Sigmoidoscopy 1966 Hepatitis B (HepB) Vaccine ( 1 of 3 - 19+ 3-dose series) 1985 Tdap/Td Vaccine >11 yo (1 - Tdap) 1985 Pneumococcal Vaccines >50 yo (1 of 1 - PCV) 2016 Shingles (Shingrix) (1 of 2) 2016 Annual SDOH Screening 10/05/2024 Influenza Vaccine (#1) 2025 Haemophilus Influenzae Type B (Hib) Vaccine Aged Out No longer eligible b ased on patient's age to complete this topic Hepatitis A (HepA) Vaccine Aged Out N o longer eligible based on patient's age to complete this topic Meningococcal ACWY Aged Out No longer eligible based on patient's age to complete this topic Polio (IPV) Aged Out No longer eligi ble based on patient's age to complete this topic Rotavirus (RV) Vaccine Aged Out No lo nger eligible based on patient's age to complete this topic Care Teams Parking Patroller Relationship Specialty Start Date End Date Lukas Yu MD [address] [place] [address] [facility] - General 06/05/09
--- OUTSIDE RECORDS SUMMARY | 2025-04-24 10:31 | XMS_ITS | Clinical Summary ---
Author Organization [facility] Address [address] [place] [address] Care Team Providers Care Orchid Transplanter Name Role Phone Ruben Estes MD Primary Care Provider [phone]- [phone] Allergies No known active allergies Medications busPIRone (BUSPAR) 10 MG tablet 1 tablet. 06/13/2023 Active diclofenac (VOLTAREN) 75 MG EC tablet 08/13/2023 Active sertraline (ZOLOFT) 100 MG tablet 1 tablet. 06/13/2023 Active gemfibrozil (LOPID) 600 MG tablet Take 1 tablet by mouth. 06/13/2023 Active omeprazole (priLOSEC) 40 MG capsule 06/13/2023 Active simvastatin (ZOCOR) 80 MG tablet 06/18/2023 Active tiZANidine (ZANAFLEX) 2 MG tablet 1 tablet. 08/13/2023 Active Active Problems No known active problems Social History Tobacco Use Types Packs/Day Years Used Date Smoking Tobacco: Never Smokeless Tobacco: Never Alcohol Use Standard Drinks/Week Comments Never 0 (1 standard drink = 0.6 oz pur e alcohol) Abuse Screen Answer Date Recorded Feels Unsafe at Home or Work/School no 07/21/2023 Feels Threatened by Someone no 07/05 Does Anyone Try to Keep You From Having Contact with Others or Doing Things Outside Your Home? no 07/21/2023 Physical Signs of Abuse Present no 07/21/2023 Housing Stability Answer Date Recorded Current Living Arrangements Not on file 07/05 Potentially Unsafe Housing Conditions Not on earl e 07/14/2023 Family and Community Support Answer Marcos e Recorded Help with Day-to-Day Activities Not on file 07/14/2023 Lonely or Isolated Not on file 07/14/2023 Employment Answer Date Recorded Do you want help finding or keeping work or a antonio b? Not on file 07/14/2023 Disabilities Answer Date Recorded Concentrating, Remembering, or Making Decisions Difficulty Not on file 07/14/2023 Doing Errands Independently Difficulty Not on fi le 07/14/2023 Education Answer Date Recorded Help with school or training? Not on file Preferred Language Not on file 07/14/2023 Sex and Gender Information Value Date Recorded Sex Assigned at Not on file Legal Sex Male 10:50 AM EDT Gender Identity Not on file Sexual Orientation Not on file Last Filed Vital Signs Vital Sign Reading Time Taken Comments Blood Pressure 124/74 08/14/2023 10:28 AM EST Pulse 79 07/21/2023 3:49 PM EDT Temperature 36.8 C (98.2 F) 08/14/2023 10:28 AM EST Respiratory Rate 20 07/21/2023 3:49 PM EDT Oxygen Saturation 96% 07/21/2023 3:49 PM EDT Inhaled Oxygen Concentration - - Weight 93 kg (205 lb) 08/14/2023 10:28 AM EST Height 180.3 cm (5' 11 ) 08/14/2023 10:28 AM EST Body Mass Index 28.59 08/14/2023 10:28 AM EST Plan of Treatment Health Maintenance Due Date Last Done Comments TDAP/TD VACCINES (1 - Tdap) 1985 COLON CANCER SCREENING 5 YEAR SIGMOIDOSCOPY [address] COLONOGRAPHY 2011 FECAL OCCULT BLOOD TEST 2011 FIT Testing (1 year) 2011 Pneumococcal Vaccine 50+ (1 of 1 - PCV) 2016 ZOSTER VACCINE (1 of 2) 2016 ANNUAL PHYSICAL 08/14/2023 HEPATITIS C SCREENING 08/14/2023 COLOGUARD 03/25/2024 03/25/2021 COLORECTAL CANCER SCREENING 03/25/2024 COVID-19 Vaccine ( season) 2024 INFLUENZA VACCINE 07/05/2025 Insurance [employer] MEDICAID [place] Care Teams Orchid Transplanter Relationship Specialty Start Date End Date Ruben Estes MD [address] [place] [address] [address] [place] [address] PCP - General Family Medicine 07/21/23
== END 2025-04-21 23:59 | disposition home or self-care (01) ==
LOC: LAB.DROPOF 04-24 10:21
PROVIDERS: PCP Family Medicine; Visit Provider Family Medicine
DX: E78.5 Hyperlipidemia, unspecified (principal); E66.9 Obesity, unspecified; Z11.59 Encounter for screening for other viral diseases; I10 Essential (primary) hypertension
CPT/HCPCS: 80053; 80061; 84443; 85025; 87340

== ENCOUNTER 2025-07-31 08:35 | Outpatient (CLI) | payer MEDICAID, SELFPAY ==
[2025-07-31 17:54] LABS: Hematocrit 39.4 % (42.0-52.0); Hemoglobin 13.4 g/dL (14.1-18.0); Immature Granulocytes % 0 %; Mean Corpuscular HGB Conc 34.0 g/dL (31.8-35.4); Mean Corpuscular Hemoglobin 31.9 pg (27.0-31.2); Mean Corpuscular Volume 93.8 fl (80-94); Nucleated Red Blood Cells % 0 %; Platelet Count 136 K/mm3 (142-424); Red Blood Count 4.20 M/mm3 (4.60-6.20); Red Cell Distribution Width-SD 45.1 fL; White Blood Count 4.8 K/mm3 (4.8-10.8)
[2025-07-31 19:14] LABS: Alanine Aminotransferase 22 U/L (12-78); Albumin Level 4.0 g/dl (3.5-5.0); Albumin/Globulin Ratio 1.3 (1.1-1.8); Alkaline Phosphatase 102 U/L (38-126); Anion Gap 14.3 mEq/L (5-15); Aspartate Amino Transferase 25 U/L (17-59); Bilirubin,Total 0.8 mg/dl (0.2-1.3); Blood Urea Nitrogen 21 mg/dl (9-20); Calcium 9.1 mg/dl (8.4-10.2); Carbon Dioxide 25 mmol/L (22.0-30.0); Chloride 103 mmol/L (98-107); Cholesterol 282 mg/dl (140-200); Creatinine,Serum 1.00 mg/dl (0.66-1.25); Estimated Glomerular Filt Rate 76 ml/min (>60); GFR (African American) 93 ML/MIN (>60); Globulin 3.0 g/dL (1.3-3.2); Glucose 102 mg/dl (74-100); HDL Cholesterol 41 mg/dl (40-60); Potassium 4.3 mmoL/L (3.5-5.1); Sodium 138 mmol/L (136-145); Total Protein,Serum 7.0 g/dl (6.3-8.2); Triglycerides 192 mg/dl (30-150)
[2025-08-01 07:32] LABS: Hepatitis C Ab Qual. W/ RFX NEGATIVE (Negative)
--- OUTSIDE RECORDS SUMMARY | 2025-08-01 11:29 | XMS_ITS | Clinical Summary ---
Author Organization [facility] Address [address] [place] [address] Care Team Providers Care Legal Researcher Name Role Phone Ruben Estes MD Primary Care Provider [phone]- [phone] Allergies No known active allergies Medications busPIRone [...] COLOGUARD 03/25/2024 03/25/2021 COLORECTAL CANCER SCREENING 03/25/2024 INFLUENZA VACCINE 05/05/2025 Insurance [employer]ICAID [place] Care Teams Legal Researcher Relationship Specialty Start Date End Date Ruben Estes MD [address] [facility] PCP - General Family Medicine 07/21/23
--- OUTSIDE RECORDS SUMMARY | 2025-08-01 11:29 | XMS_ITS | Clinical Summary ---
Author Organization [facility] Address [address] [place] [address] Care Team Providers Care Hot Stick Man Name Role Phone Lukas Yu MD Primary Care Provider [phone] Social History Tobacco Use Types Packs/Day Years [...] SDOH Screening 10/05/2024 Influenza Vaccine (#1) 2025 RSV 50+ and (1 - 1 -dose 75+ series) 2041 Haemophilus Influenzae Type B (Hib) Vaccine Aged [...] age to complete this topic Care Teams Hot Stick Man Relationship Specialty Start Date End Date Lukas Yu MD [address] [place] [address] PCP - General 06/05/09
--- OUTSIDE RECORDS SUMMARY | 2025-08-01 11:29 | XMS_ITS | Clinical Summary ---
Author Organization [facility] Address [address] [place] [address] Care Team Providers Care Dietist Name Role Phone Nilsa Zambrano Primary Care Provider [phone] Family History Medical History Relation Name Comments [...] of Treatment Not on file Care Teams Dietist Relationship Specialty Start Date End Date Nilsa Zambrano PA [address] [place] [address] PCP - General 02/15/21
== END 2025-07-31 23:59 ==
LOC: LAB.DROPOF 08-01 11:23
PROVIDERS: PCP Family Medicine; Visit Provider Family Medicine
DX: E78.5 Hyperlipidemia, unspecified (principal); Z11.59 Encounter for screening for other viral diseases; Z11.4 Encounter for screening for human immunodeficiency virus [HIV]
CPT/HCPCS: 80053; 80061; 85025; 86803; 87389

== ENCOUNTER 2025-08-10 06:29 | Outpatient (CLI) | payer SELFPAY ==
--- OUTSIDE RECORDS SUMMARY | 2025-08-10 06:32 | XMS_ITS | Data Portability ---
Author Organization [facility] Address [address] [facility] [address] [place] [address] Assessment No assessment recorded. Plan of Treatment Reminders Order Date Submit Date Provider Last Modified By Organization Details Last Modified Time Details Appointments None recorded. Lab None recorded. Referral None recorded. Procedures None recorded. Surgeries None recorded. Imaging None recorded. Medication Orders Depo-Testo sterone 200 mg/mL intramuscu lar oil 2019 020 [id number], [address] [place] [address], [address], 0 12:59:56 Depo-Testo sterone 200 mg/mL intramuscu lar oil 2019 020 [id number], [address] [place] [address], [address], 0 07:51:19 Depo-Testo sterone 200 mg/mL intramuscu lar oil 2019 020 [id number], [address] [place] [address], [address], 0 09:08:30 Depo-Testo sterone 200 mg/mL intramuscu lar oil 2019 020 [facility], [address] [place] [address], [id number], 0 08:43:26 Depo-Testo sterone 200 mg/mL intramuscu lar oil 2019 020 [id number], [address] [place], [address], 0 10:57:10 Patient TargetsNo targets recorded. Patient InstructionsNo instructions recorded. Reason for Referral None Reported. Problems Name Problem SNOMED Code Status Onset Date Resolution Date Notes Provider Name and Address Organization Details Recorded Time Testosterone level below reference range 107849669 Active 2017 [facility] Ant [facility] 8 15:03:34 Problem Notes None recorded. Procedures Surgical History Date Name Laterality Status Provider Name and Address Organization Details Recorded Time Tonsillectomy completed [facility] 01/28/2018 15:04:10 Hernia Repair completed [facility] 01/28/2018 15:04:15 Imaging Results None recorded. Procedure Notes None recorded. Medical Equipment None Reported. Allergies No known drug allergies Medications Name Sig Start Date Stop Date Status Note LastModified by Organization Details LastModified Time Depo-Testos terone 200 mg/mL intramuscul ar oil Inject 1 mL every 3 weeks by intramusc ular route as directed for 14 days. 2019 active Not Available Not Available Not Avai lable Depo-Testad iol 2 mg-50 mg/mL intramuscul ar oil Inject 1.5 mL every 3 weeks by intramusc ular route as directed for 21 days. active Not Available Not Available No t Available escitalopra m 10 mg tablet Take 1 tablet every day by oral route. active Not Available Not Available No t Available tizanidine active Not Available Not Av ailable Not Available omeprazole active Not Available Not Av ailable Not Available Fish Oil active Not Available Not Avai lable Not Available pravastatin active Not Available Not A vailable Not Available Zyrtec 10 mg capsule Take by oral route. 05/17 completed Not Available Not Available Not Available AndroGel 20.25 mg/1.25 gram per pump act. (1.62 %) transdermal gel 2017 active Not Available Not Available Not Avai lable Flonase Allergy Relief active Not Available Not Available Not Available Vitals Date Recorded Body height Provider Name an d Address Organization Details Last Updated DateTime 01/12/2020 180.34 cm Belgica Puentes [facility] 01/12/2020 09:09:30 Social History None recorded. Functional Status None recorded. Mental Status None recorded. Family History Relationship Description Onset Age of this Age Resolved Age Notes LastModified by Organization Details LastModified Time Father No current problems or disability [email or web address] Not available 01/28 15:03:47 Mother No current problems or disability [email or web address] Not available 01/28 15:03:47 Medical History Condition Response Arthritis Y High Cholesterol Y Hypertension N Past Encounters Encounter ID Performer Location Encounter Start Date Encounter Closed Date Diagnosis/Indication Diagnosis SNOMED-CT Code Diagnosis ICD10 Code Diagnosis IMO Codes Diagnosis Note [id number] TREY POWERS MD [facility] [address] [facility],[place] [address] 01/28/2018 14:34:42 02/10/2018 09:53:17 Testicular hypofunction 683996103 E29.1 [id number] TREY POWERS MD [facility] [address] [address] 03/09/2018 08:26:59 03/09/2018 09:12:42 Testicular hypofunction 615807629 E29.1 [id number] TAYLOR FIGUEREDO JR, MD [facility] [address] [address] 04/01/2018 08:24:00 04/01/2018 09:02:59 Testosterone level below reference range 887402715 R79.89 [id number] TAYLOR FIGUEREDO JR, MD [facility] [address] [place] [address] 04/22/2018 08:38:36 04/22/2018 08:51:55 Testicular hypofunction 283799376 E29.1 [id number] GORGE GUILLEN MD [facility] [address] [place] [address] 05/14/2018 09:03:07 05/14/2018 09:33:03 Testicular hypofunction 372320595 E29.1 [id number] TAYLOR FIGUEREDO JR, MD [facility] [address] [place] [address] 0 05/28/2018 09:02:07 05/28/2018 09:20:08 Testosterone level below reference range 453818487 R79.89 [id number] TREY POWERS MD [facility] [address] [place] [address] 0 06/11/2018 08:33:24 06/11/2018 08:46:45 Testicular hypofunction 779178868 E29.1 [id number] GORGE GUILLEN MD [facility] [address] [place] [address] 0 06/18/2018 09:08:53 06/18/2018 09:21:56 Testosterone level below reference range 176327934 R79.89 [id number] TAYLOR FIGUEREDO JR, MD [facility] [address] [place] [address] 0 07/01/2018 08:24:15 07/01/2018 08:58:50 Testicular hypofunction [id number] E29.1 [id number] TAYLOR FIGUEREDO JR, MD [facility] [address] [place] [address] 0 07/22/2018 08:20:18 07/22/2018 08:48:53 Testicular hypofunction 947551105 E29.1 [id number] DINESH CONRAD MD [facility] [address] [place] [address] 0 08/13/2018 10:11:26 08/13/2018 10:26:34 Testicular hypofunction 974448769 E29.1 [id number] TREY POWERS MD [facility] [address] [place] [address] 0 08/24/2018 09:08:37 08/24/2018 09:19:51 Testicular hypofunction 291390337 E29.1 [id number] TAYLOR FIGUEREDO JR, MD [facility] [address] [place] [address] 09/03/2018 09:14:48 09/03/2018 09:49:52 Testicular hypofunction 430619690 E29.1 [id number] GORGE GUILLEN MD [facility] [address] [place] [address] 0 09/24/2018 12:27:07 09/24/2018 13:37:26 Testicular hypofunction 877108512 E29.1 [id number] TAYLOR FIGUEREDO JR, MD [facility] [address] [place] [address] 0 10/14/2018 08:56:25 10/14/2018 09:13:47 Testicular hypofunction 527157868 E29.1 [id number] TAYLOR FIGUEREDO JR, MD [facility] [address] [place] [address] 0 11/04/2018 08:18:10 11/04/2018 08:43:39 Testicular hypofunction 375923439 E29.1 [id number] TAYLOR FIGUEREDO JR, MD [facility] [address] [place] [address] 0 11/25/2018 08:26:18 11/25/2018 08:52:17 Testicular hypofunction [id number] E29.1 [id number] TAYLOR FIGUEREDO JR, MD [facility] [address] [place] [address] 0 12/16/2018 08:21:46 12/16/2018 08:41:59 Testicular hypofunction 030281702 E29.1 [id number] TAYLOR FIGUEREDO JR, MD [facility] [address] [place] [address] 0 01/13/2019 08:17:35 01/13/2019 08:59:13 Testicular hypofunction 972405519 E29.1 [id number] TAYLOR FIGUEREDO JR, MD [facility] [address] [place] [address] 02/03/2019 08:33:16 02/03/2019 08:41:30 Testicular hypofunction 683142722 E29.1 [id number] TAYLOR FIGUEREDO JR, MD [facility] [address] [place] [address] 02/24/2019 08:26:07 02/24/2019 09:05:55 Testicular hypofunction 285206446 E29.1 [id number] TAYLOR FIGUEREDO JR, MD [facility] [address] [place] [address] 03/17/2019 08:14:59 03/17/2019 08:25:40 Testicular hypofunction [id number] E29.1 [id number] TREY POWERS MD [facility] [address] [place], [place] [address] 04/08/2019 08:30:50 04/08/2019 09:02:05 Testicular hypofunction 785333193 E29.1 [id number] TAYLOR FIGUEREDO JR, MD [facility] [address] [address] 04/28/2019 08:05:22 04/28/2019 09:19:54 Testicular hypofunction 317492418 E29.1 [id number] GORGE GUILLEN MD [facility] [address] [place] [address] 05/09/2019 10:19:20 05/09/2019 10:45:41 Testicular hypofunction 060577586 E29.1 [id number] MD [facility] [address] [place] [address] 05/17/2019 08:50:25 05/17/2019 09:52:17 Testosterone level below reference range 400362269 R79.89 [id number] TAYLOR FIGUEREDO JR, MD [facility] [address] [place], [place] [address] 06/09/2019 08:35:22 06/09/2019 09:02:07 Testicular hypofunction [id number] E29.1 [id number] TAYLOR FIGUEREDO JR, MD [facility] [address] [place], [place] [id number] 06/30/2019 08:28:59 06/30/2019 09:12:36 Testicular hypofunction [id number] E29.1 [id number] TAYLOR FIGUEREDO JR, MD [facility] [address] [place] [address] 0 07/20/2019 08:58:08 07/20/2019 09:10:59 Testicular hypofunction [id number] E29.1 [id number] TAYLOR FIGUEREDO JR, MD [facility] [address] [place] [address] 0 08/01/2019 10:40:46 08/01/2019 11:11:01 Testicular hypofunction 950247427 E29.1 [id number] TAYLOR FIGUEREDO JR, MD [facility] [address] [place] [address] 0 08/11/2019 08:27:53 08/11/2019 09:11:27 Testicular hypofunction 312164225 E29.1 [id number] TAYLOR FIGUEREDO JR, MD [facility] [address] [place] [address] 0 08/25/2019 08:53:52 08/25/2019 09:04:26 Testicular hypofunction [id number] E29.1 [id number] TAYLOR FIGUEREDO JR, MD [facility] [address] [place] [address] 0 09/15/2019 08:11:33 09/15/2019 08:23:24 Testicular hypofunction 777955809 E29.1 [id number] TAYLOR FIGUEREDO JR, MD [facility] [address] [place] [address] 0 10/10/2019 08:46:02 10/10/2019 08:54:55 Testicular hypofunction [id number] E29.1 [id number] TAYLOR FIGUEREDO JR, MD [facility] [address] [place] [address] 11/03/2019 08:28:07 11/03/2019 09:05:02 Testicular hypofunction [id number] E29.1 [id number] TAYLOR FIGUEREDO JR, MD [facility] [address] [place] [address] 11/24/2019 08:19:05 11/24/2019 08:34:24 Testicular hypofunction 448303916 E29.1 [id number] TAYLOR FIGUEREDO JR, MD [facility] [address] [address] 12/22/2019 08:32:10 12/22/2019 08:44:58 Testicular hypofunction [id number] E29.1 [id number] TAYLOR FIGUEREDO JR, MD [facility] [address] [address] 01/12/2020 08:51:56 01/12/2020 09:07:44 Testicular hypofunction 367703073 E29.1 [id number] TAYLOR FIGUEREDO JR, MD [facility] [address] [address] 02/02/2020 08:24:05 02/02/2020 08:40:09 Testicular hypofunction [id number] E29.1 [id number] TAYLOR FIGUEREDO JR, MD [facility] [address] [address] 02/23/2020 08:28:11 02/23/2020 08:36:57 Testicular hypofunction [id number] E29.1 [id number] TAYLOR FIGUEREDO JR, MD [facility] [address] [address] 03/29/2020 08:27:12 03/29/2020 08:37:18 Testicular hypofunction 838868642 E29.1 [id number] TAYLOR FIGUEREDO JR, MD [facility] [address] [place] [address] 05/24/2020 08:12:11 05/24/2020 08:43:38 Testicular hypofunction 109959978 E29.1 Health Concerns Section Related Observation LastModified by Organization Detai ls LastModified Time None Recorded Concern Status LastModified by Organization Details LastModified Time None Recorded Advance Directives Directive None Recorded Payers Insurance Date Sequence Insurance Name Policy Number Policy Mares Covered Member ID Mares Member ID Guarantor Name 06/11/2020 1 [place] [id number] Diego [id number] Martell Diego
--- OUTSIDE RECORDS SUMMARY | 2025-08-10 06:32 | XMS_ITS | Clinical Summary ---
Author Organization [facility] Address [address] [place] [address] Care Team Providers Care Middleware Administrator Name Role Phone Ruben Estes MD Primary Care Provider [phone] Allergies No known active allergies Medications busPIRone [...] 05/05/2025 Insurance [employer] MEDICAID [place] Care Teams Middleware Administrator Relationship Specialty Start Date End Date Ruben Estes MD [address] [facility] PCP - General Family Medicine 07/21/23
--- OUTSIDE RECORDS SUMMARY | 2025-08-10 06:32 | XMS_ITS | Clinical Summary ---
Author Organization [facility] Address [address] [place] [address] Care Team Providers Care Director Of Respiratory Therapy Name Role Phone Lukas Yu MD Primary Care Provider [phone] Social History Tobacco Use Types Packs/Day Years [...] age to complete this topic Care Teams Director Of Respiratory Therapy Relationship Specialty Start Date End Date Lukas Yu MD [address] [place] [address] PCP - General 06/05/09
--- OUTSIDE RECORDS SUMMARY | 2025-08-10 06:32 | XMS_ITS | Clinical Summary ---
Author Organization [facility] Address [address] [place] [address] Care Team Providers Care Manager Clinical Name Role Phone Nilsa Zambrano Primary Care Provider [phone] Family History Medical History Relation Name Comments [...] of Treatment Not on file Care Teams Manager Clinical Relationship Specialty Start Date End Date Nilsa Zambrano PA [address] [place] [address] PCP - General 02/15/21
--- NOTE | 2025-08-10 07:00 | CT_ITS ---
APPROVED REPORT Day Care Home Mother: CLINICAL INDICATION Coronary risk evaluation and stratification TECHNIQUE Image Acquisition: A 128 slice MDCT scanner (Codealikea View) was used for data acquisition. A noncontrast coronary calcium scan was performed. A CT attenuation threshold of 130 Hounsfield units (HU) was used for the detection of calcium in contiguous voxels of 1 sq mm in area to be counted as individual lesions. A tube voltage of 120 KVp was used. The patient received no medications prior to the coronary calcium CT. Image Reconstruction Transaxial images were reconstructed at 0.67 mm slide thickness. Data was reviewed interactively on an advanced workstation capable of 2 and 3-dimensional displays in all conventional reconstruction formats, including multiplanar reformations, maximum intensity projections, curved multiplanar reformations, and volume rendered reconstructions. When applicable, selected routine images describing the relevant coronary anatomy and pathology were saved and sent to PACS. Complications None Technical Quality Overall image quality was good. Total DLP (Dose-Length Product) is 161.9 mGy-cm. The reported value represents the total of one or more individual components during the CT acquisition of this date and at this time, and as such, the same value may appear in more than one CT report depending on the interpreting/reporting physicians. COMPARISON None FINDINGS CT Coronary Calcium Scoring LMA (Left Main Artery) = 0 LAD (Left Anterior Descending) = 52 LCX (Left Coronary Circumflex) = 33 RCA (Right Coronary Artery) = 17 Total Calcium Score = 102 using the AJ-130 method. There is mild calcification in the aortic valve. IMPRESSION -Coronary artery calcification is present. -Total Calcium Score (Agatston Score) = 102 using the AJ-130 method. -The observed calcium score of 102 is at 71st percentile for subjects of the same age, sex, and race/ethnicity. The interpretation of the calcium heart score is based on the following continuum*: 0 = no calcified plaque detected (risk of coronary artery disease is very low ??? less than 5%) 1-10 = calcium detected in extremely minimal levels (risk of coronary diseases is still low ??? less than 10%) 11-100 = mild levels of plaque detected with certainty (mild or minimal narrowing of heart arteries is likely) 101-400 = definite,at least moderate levels of plaque detected (relatively high risk of a heart attack within 3-5 years) >401-999 = extensive levels of plaque detected (high risk of heart attack, high levels of vascular disease are present, high likelihood of at least one significant coronary narrowing) *The calcium heart score quantifies the burden of coronary calcification/plaque in the coronary arteries. The calcium heart score does not evaluate the presence or the burden of non-calcified (i.e. soft) plaque. The coronary and cardiac findings of this Coronary Calcium CT were reviewed, reported, and signed by Dimas Kirkland MD (Telegraph Installer). Conclusion Electronically signed by : Vida Kirkland MD 08/14/2025 12:42:40
== END 2025-08-10 23:59 | disposition home or self-care (01) ==
PROVIDERS: PCP Family Medicine; Visit Provider Family Medicine
DX: I10 Essential (primary) hypertension (principal); E78.5 Hyperlipidemia, unspecified; I25.10 Atherosclerotic heart disease of native coronary artery without angina pectoris
CPT/HCPCS: 75571

== ENCOUNTER 2025-09-09 23:43 | Emergency (ER) | payer OTHER, SELFPAY ==
[2025-09-09 23:51] VITALS: BP 140/89; PULSE 62; RESP 18; TEMP 37.1; O2SAT 96; BMI 31.5
--- OUTSIDE RECORDS SUMMARY | 2025-09-09 23:51 | XMS_ITS | Clinical Summary ---
Author Organization [facility] Address [address] [place] [address] Care Team Providers Care Plaster Form Maker Name Role Phone Ruben Estes MD Primary Care Provider [phone]- [phone] Allergies No known active allergies Medications busPIRone [...] 05/05/2025 Insurance [employer] [place]ICAID [place] Care Teams Plaster Form Maker Relationship Specialty Start Date End Date Ruben Estes MD [address] [facility] [address] [facility] PCP - General Family Medicine 07/21/23
--- OUTSIDE RECORDS SUMMARY | 2025-09-09 23:51 | XMS_ITS | Data Portability ---
Author Organization [facility] JEFFERSON CLOSED Address [address] [facility] [address] [place] [address] Assessment No assessment recorded. Plan of Treatment Reminders Order Date Submit Date Provider Last Modified By Organization Details Last Modified Time Details Appointments None recorded. Lab None recorded. Referral None recorded. Procedures None recorded. Surgeries None recorded. Imaging None recorded. Medication Orders Depo-Testo sterone 200 mg/mL intramuscu lar oil 2019 020 [facility][id number], [address] [place] [address], [id number], 0 12:59:56 Depo-Testo sterone 200 mg/mL intramuscu lar oil 2019 020 [id number], [address] [place] [address], [id number], 0 07:51:19 Depo-Testo sterone 200 mg/mL intramuscu lar oil 2019 020 [id number], [address] [place] [address], [id number], 0 09:08:30 Depo-Testo sterone 200 mg/mL intramuscu lar oil 2019 020 [id number], [address] [place] [address], [id number], 0 08:43:26 Depo-Testo sterone 200 mg/mL intramuscu lar oil 2019 020 [facility] #[id number], [address] [place], [address], 0 10:57:10 Patient TargetsNo targets recorded. Patient InstructionsNo instructions recorded. Reason for Referral None Reported. Problems Name Problem SNOMED Code Status Onset Date Resolution Date Notes Provider Name and Address Organization Details Recorded Time Testosterone level below reference range 048883263 Active 2017 [facility] 8 15:03:34 Problem Notes None recorded. Procedures Surgical History Date Name Laterality Status Provider Name and Address Organization Details Recorded Time [facility] 01/28/2018 15:04:10 Hernia Repair [facility] 01/28/2018 15:04:15 Imaging Results None recorded. Procedure [...] Updated DateTime 01/12/2020 180.34 cm Belgica Puentes [facility] 01/12/2020 09:09:30 Social History None [...] ICD10 Code Diagnosis IMO Codes Diagnosis Note [id number] TREY POWERS MD [facility] [address] [facility],[address] [place] [address] 01/28/2018 14:34:42 02/10/2018 09:53:17 Testicular hypofunction 156500609 E29.1 [id number] TREY POWERS MD [facility] [address] [address] 03/09/2018 08:26:59 03/09/2018 09:12:42 Testicular hypofunction 167965284 E29.1 [id number] TAYLOR FIGUEREDO JR, MD [facility] [address] [facility] [address] [address] 04/01/2018 08:24:00 04/01/2018 09:02:59 Testosterone level below reference range 431710877 R79.89 [id number] TAYLOR FIGUEREDO JR, MD [facility] [address] [facility] [address] [place] [address] 04/22/2018 08:38:36 04/22/2018 08:51:55 Testicular hypofunction 511409723 E29.1 [id number] GORGE GUILLEN MD [facility] [address] [facility] [address] [place] [address] 05/14/2018 09:03:07 05/14/2018 09:33:03 Testicular hypofunction 333618022 E29.1 [id number] TAYLOR FIGUEREDO JR, MD [facility] [address] [place] [address] 0 05/28/2018 09:02:07 05/28/2018 09:20:08 Testosterone level below reference range 468996700 R79.89 [id number] TREY POWERS MD [facility] [address] [place] [address] 0 06/11/2018 08:33:24 06/11/2018 08:46:45 Testicular hypofunction 662329923 E29.1 [id number] GORGE GUILLEN MD [facility] [address] [place] [address] 0 06/18/2018 09:08:53 06/18/2018 09:21:56 Testosterone level below reference range 973786334 R79.89 [id number] TAYLOR FIGUEREDO JR, MD [facility] [address] [place] [address] 0 07/01/2018 08:24:15 07/01/2018 08:58:50 Testicular hypofunction 707119339 E29.1 [id number] TAYLOR FIGUEREDO JR, MD [facility] [address] [place] [address] 0 07/22/2018 08:20:18 07/22/2018 08:48:53 Testicular hypofunction 396285113 E29.1 [id number] DINESH CONRAD MD [facility] [address] [place] [address] 0 08/13/2018 10:11:26 08/13/2018 10:26:34 Testicular hypofunction 046848490 E29.1 [id number] TREY POWERS MD [facility] [address] [place] [address] 0 08/24/2018 09:08:37 08/24/2018 09:19:51 Testicular hypofunction 737833363 E29.1 [id number] TAYLOR FIGUEREDO JR, MD [facility] [address] [place] [address] 09/03/2018 09:14:48 09/03/2018 09:49:52 Testicular hypofunction 250804361 E29.1 [id number] GORGE GUILLEN MD [facility] [address] [place] [address] 0 09/24/2018 12:27:07 09/24/2018 13:37:26 Testicular hypofunction 950419389 E29.1 [id number] TAYLOR FIGUEREDO JR, MD [facility] [address] [place] [address] 0 10/14/2018 08:56:25 10/14/2018 09:13:47 Testicular hypofunction 566368594 E29.1 [id number] TAYLOR FIGUEREDO JR, MD [facility] [address] [place] [address] 0 11/04/2018 08:18:10 11/04/2018 08:43:39 Testicular hypofunction 260080889 E29.1 [id number] TAYLOR FIGUEREDO JR, MD [facility] [address] [place] [address] 0 11/25/2018 08:26:18 11/25/2018 08:52:17 Testicular hypofunction 303203865 E29.1 [id number] TAYLOR FIGUEREDO JR, MD [facility] [address] [place] [address] 0 12/16/2018 08:21:46 12/16/2018 08:41:59 Testicular hypofunction 722148176 E29.1 [id number] TAYLOR FIGUEREDO JR, MD [facility] [address] [place] [address] 0 01/13/2019 08:17:35 01/13/2019 08:59:13 Testicular hypofunction 803234568 E29.1 [id number] TAYLOR FIGUEREDO JR, MD [facility] [address] [place] [address] 02/03/2019 08:33:16 02/03/2019 08:41:30 Testicular hypofunction 621555404 E29.1 [id number] TAYLOR FIGUEREDO JR, MD [facility] [address] [place] [address] 02/24/2019 08:26:07 02/24/2019 09:05:55 Testicular hypofunction 480688860 E29.1 [id number] TAYLOR FIGUEREDO JR, MD [facility] [address] [place] [address] 03/17/2019 08:14:59 03/17/2019 08:25:40 Testicular hypofunction 843495339 E29.1 [id number] TREY POWERS MD [facility] [address] [place], [place] [address] 04/08/2019 08:30:50 04/08/2019 09:02:05 Testicular hypofunction 331767306 E29.1 [id number] TAYLOR FIGUEREDO JR, MD [facility] [address] [address] 04/28/2019 08:05:22 04/28/2019 09:19:54 Testicular hypofunction 853075551 E29.1 [id number] GORGE GUILLEN MD [facility] [address] [place] [address] 05/09/2019 10:19:20 05/09/2019 10:45:41 Testicular hypofunction [id number] E29.1 [id number] [facility] [address] [place] [address] 05/17/2019 08:50:25 05/17/2019 09:52:17 Testosterone level below reference range 910499351 R79.89 [id number] TAYLOR FIGUEREDO JR, MD [facility] [address] [place], [place] [address] 06/09/2019 08:35:22 06/09/2019 09:02:07 Testicular hypofunction 526252370 E29.1 [id number] TAYLOR FIGUEREDO JR, MD [facility] [address] [place], [place] [address] 06/30/2019 08:28:59 06/30/2019 09:12:36 Testicular hypofunction [id number] E29.1 [id number] TAYLOR FIGUEREDO JR, MD [facility] [address] [place] [address] 0 07/20/2019 08:58:08 07/20/2019 09:10:59 Testicular hypofunction 758378204 E29.1 [id number] TAYLOR FIGUEREDO JR, MD [facility] [address] [place] [address] 0 08/01/2019 10:40:46 08/01/2019 11:11:01 Testicular hypofunction 548411719 E29.1 [id number] TAYLOR FIGUEREDO JR, MD [facility] [address] [place] [address] 0 08/11/2019 08:27:53 08/11/2019 09:11:27 Testicular hypofunction 563437985 E29.1 [id number] TAYLOR FIGUEREDO JR, MD [facility] [address] [place] [address] 0 08/25/2019 08:53:52 08/25/2019 09:04:26 Testicular hypofunction 102935369 E29.1 [id number] TAYLOR FIGUEREDO JR, MD [facility] [address] [place] [address] 0 09/15/2019 08:11:33 09/15/2019 08:23:24 Testicular hypofunction 904013913 E29.1 [id number] TAYLOR FIGUEREDO JR, MD [facility] [address] [place] [address] 0 10/10/2019 08:46:02 10/10/2019 08:54:55 Testicular hypofunction 934524355 E29.1 [id number] TAYLOR FIGUEREDO JR, MD [facility] [address] [place] [address] 11/03/2019 08:28:07 11/03/2019 09:05:02 Testicular hypofunction 030426410 E29.1 [id number] TAYLOR FIGUEREDO JR, MD [facility] [address] [place] [address] 11/24/2019 08:19:05 11/24/2019 08:34:24 Testicular hypofunction 822522869 E29.1 [id number] TAYLOR FIGUEREDO JR, MD [facility] [address] [address] 12/22/2019 08:32:10 12/22/2019 08:44:58 Testicular hypofunction 250567330 E29.1 [id number] TAYLOR FIGUEREDO JR, MD [facility] [address] [address] 01/12/2020 08:51:56 01/12/2020 09:07:44 Testicular hypofunction [id number] E29.1 [id number] TAYLOR FIGUEREDO JR, MD [facility] [address] [address] 02/02/2020 08:24:05 02/02/2020 08:40:09 Testicular hypofunction 492229625 E29.1 [id number] TAYLOR FIGUEREDO JR, MD [facility] [address] [address] 02/23/2020 08:28:11 02/23/2020 08:36:57 Testicular hypofunction 712367639 E29.1 [id number] TAYLOR FIGUEREDO JR, MD [facility] [address] [address] 03/29/2020 08:27:12 03/29/2020 08:37:18 Testicular hypofunction 087909560 E29.1 [id number] TAYLOR FIGUEREDO JR, MD [facility] [address] [place] [address] 05/24/2020 08:12:11 05/24/2020 08:43:38 Testicular hypofunction 975770823 E29.1 Health Concerns Section Related Observation LastModified by Organization Detai ls LastModified Time None Recorded Concern Status LastModified by Organization Details LastModified Time None Recorded Advance Directives Directive None Recorded Payers Insurance Date Sequence Insurance Name Policy Number Policy Mares Covered Member ID Mares Member ID Guarantor Name 06/11/2020 1 [place] [id number] Diego [id number] Martell Diego
--- OUTSIDE RECORDS SUMMARY | 2025-09-09 23:51 | XMS_ITS | Clinical Summary ---
Author Organization Healthcare Address [address] [place] [address] Care Team Providers Care Product Safety Lead Name Role Phone Nilsa Zambrano Primary Care Provider [phone] Family History Medical History Relation Name Comments [...] of Treatment Not on file Care Teams Product Safety Lead Relationship Specialty Start Date End Date Nilsa Zambrano PA [address] [place] [address] [place] [address] PCP - General 02/15/21
--- OUTSIDE RECORDS SUMMARY | 2025-09-09 23:51 | XMS_ITS | Clinical Summary ---
Author Organization [facility] Address [address] [place] [address] Care Team Providers Care Hot Blaster Name Role Phone Lukas Yu MD Primary Care Provider [phone] Social History Tobacco Use Types Packs/Day Years [...] to complete this topic Care Teams Hot Blaster Relationship Specialty Start Date End Date Lukas Yu MD [address] [place] [address] PCP - General 06/05/09
[2025-09-09 23:56] VITALS: BP 140/87; PULSE 62; RESP 18; TEMP 36.6; O2SAT 95
--- NOTE | 2025-09-10 00:36 | PC.NURSE ---
Spoke with [facility] for consult.
--- NOTE | 2025-09-10 00:43 | HMH.EDGENADL ---
Discharge Plan Disposition Patient Disposition: Xfer Short-Term Hosp Condition: Good Prescriptions Prescriptions: No Action fluticasone propionate 50 mcg/actuation spray,suspension 1 spray intranasal DAILY PRN (Reason: Allergy Symptoms) Rx Instructions: administer into each nostril omega 5-uhh-usr-fish oil [Fish Oil] 1,000 mg (120 mg-180 mg) capsule 1 cap PO TID buspirone 10 mg tablet 10 mg PO BID 90 Days Qty: 180 1RF Zyrtec 10 mg capsule 10 mg PO DAILY PRN (Reason: allergies) 90 Days Qty: 90 2RF diclofenac sodium 75 mg tablet,delayed release (DR/EC) 75 mg PO BID 90 Days Qty: 180 1RF omeprazole 40 mg capsule,delayed release(DR/EC) 40 mg PO DAILY Qty: 90 2RF sertraline 100 mg tablet 100 mg PO DAILY Qty: 90 2RF tizanidine 2 mg tablet See Rx Instructions .ROUTE .COMPLEX Qty: 90 1RF Dose Instruction: TAKE 1 TABLET BY MOUTH 3 TIMES A DAY NEEDED FOR MUSCLE SPASTICITY Rx Instructions: TAKE 1 TABLET BY MOUTH 3 TIMES A DAY NEEDED FOR MUSCLE SPASTICITY Referrals Follow up/Referrals: Ruben Estes MD [Primary Care Provider, Internal Medicine] - See instructions Clinical Impressions Clinical Impression: Corneal ulcer of right eye Print Language Print Language: Italian Discharge ED Provider: Greer Garcia General Adult HPI General Chief complaint: Eye Problems Stated complaint: AO 09/09 1200, right eye pain Time Seen by Provider: 09/10/25 00:08 Mode of Arrival: Ambulatory Source of Information: Patient Description of Symptoms (Recalled from ER Triage Doc. by RN): Patient states around lunch time today he was cutting wood, and got saw dust in his right eye. States it didnt feel like an object hit his eye. States after the saw dust, his right eye became inflammed. States he has had several corneal abrasions in the past, and the pain is similar, however this time more severe. Patients right eye is swollen and red. Patient states he has been using artifical tears, and used an antibiotic eye drops today. On nurse examination no foriegn body is visible. History of Present Illness HPI narrative: 60-year-old male with history of GERD, presents to the ER with right eye pain. Patient reports he was cutting wood and sawdust from the particle board he was cutting got in the right eye. He reports he has had corneal abrasions in the past so he used ofloxacin drops at home but the pain continues to worsen. He states it is extremely uncomfortable to blink and the eye is painful and tearing. He states his vision is at baseline. He does wear glasses. He presents to the ER for further evaluation. Notably patient is not a diabetic. No other complaints or concerns. Related Data Home Medications ?Medication ?Instructions ?Recorded ?Confirmed omega 0-crb-ywq-fish oil 1,000 mg 1 cap PO TID 06/13/22 08/03/25 (120 mg-180 mg) capsule (Fish Oil) fluticasone propionate 50 1 spray intranasal DAILY PRN 11/10/24 08/03/25 mcg/actuation nasal Allergy Symptoms spray,suspension Previous Rx's ?Medication ?Instructions ?Recorded buspirone 10 mg tablet 10 mg PO BID 90 days #180 tabs 05/02/25 cetirizine 10 mg capsule (Zyrtec) 10 mg PO DAILY PRN allergies 90 05/02/25 days #90 caps diclofenac sodium 75 mg 75 mg PO BID 90 days #180 tabs 05/02/25 tablet,delayed release omeprazole 40 mg capsule,delayed 40 mg PO DAILY #90 caps 05/02/25 release sertraline 100 mg tablet 100 mg PO DAILY #90 tabs 05/02/25 tizanidine 2 mg tablet See Rx Instructions .Route 07/10/25 .COMPLEX #90 tabs Allergies Allergy/AdvReac Type Severity Reaction Status Date / Time No Known Allergies Allergy Verified 08/03/25 08:03 [facility] Disclaimer: The information contained in this section may have been updated after the patient was seen, as this information can be updated by other users. Medical History (Updated 09/10/25 @ 00:52 by Greer Garcia MD) Depression Anxiety Chronic GERD Hypertension Hyperlipidemia Surgical History Previous back surgery H/O hernia repair History of tonsillectomy Family History Mother Coronary artery disease Social History Smoking Status: Never smoker alcohol intake: never substance use type: denies use current occupational status: retired Travel in the last 8 weeks?: None Have you lived/traveled outside US in past 30 days?: No Contact w/someone who lives/traveled outside US past 30 days?: No Exposure to someone with infectious disease in past 14 days?: No Do you have a fever (greater than 100.4 F or 38 C)?: No Have you tested positive for COVID-19?: No Exposed to someone with COVID-19 in past 14 days?: No Do you have a sore throat?: No Do you have a cough?: No Do you have any weakness?: No Do you have any diarrhea?: No Are you experiencing any unusual bleeding?: No Do you have any muscle aches/pain?: No Do you have any abdominal pain?: No Are you experiencing loss of taste or smell?: No Other Medical History Have you received the Pneumonia Vaccine: No ROS Obtained: Yes Systems reviewed as appropriate & no additional complaints except as documented Per HPI Physical Exam General General appearance: alert and in no apparent distress Head Head exam: atraumatic and normocephalic Eye Eye exam: Present PERRL, EOMI, conjunctival injection (Right) and other (Tearing of the right eye but no purulent discharge); Absent jaundice Expanded Eye Exam Pupils: Bilateral: regular, round and reactive Visual acuity (R) = 20/: 30 Visual acuity (L) = 20/: 25 With correction: Yes IOP (R) in mmH IOP (L) in mmH IOP measured with: [facility] (icare) Comment: Fluorescein exam demonstrates 2 mm corneal ulcer at approximately the 10 o'clock position of the right cornea, there is additional uptake in the cornea that appears inflammatory concerning for ulcer over abrasion ENT ENT exam: Present mucous membranes moist Neck Neck exam: Present normal inspection and full ROM Chest Chest inspection: Present symmetric chest wall rise Respiratory Respiratory exam: Absent respiratory distress or stridor Cardiovascular Cardiovascular exam: Present regular rate and normal rhythm Extremities Exam Extremities exam: Present full ROM Neurological Exam Neurological exam: Present alert and oriented X3; Absent motor sensory deficit Psychiatric Psychiatric exam: Present normal affect and normal mood Skin Skin exam: Present warm and dry Medical Decision Making Medical Records Medical records reviewed: Yes I reviewed the patient's medical records. Screening: Per USPSTF and CDC recommendations, given the prevalence of disease in our region, it is our hospital?s policy to screen for HIV and viral Hepatitis for all patients aged 18 and over and those with ongoing risk factors. Manuel Inquiry Pt receiving controlled substance: No Vital Signs: 09/09/25 23:51 09/09/25 23:56 Temperature 98.8 F 97.8 F Temperature Source Oral Oral Pulse Rate 62 Pulse Rate [Right] 62 Respiratory Rate 18 18 Blood Pressure 140/87 Blood Pressure [Right Arm] 140/89 Blood Pressure Mean [Right Arm] 106 02 Sat by Pulse Oximetry 96 95 Oxygen Delivery Method Room Air Room Air Orders (Tests/Meds): ED MEDICATIONS Discontinued Medications Generic Name Dose Route Start Last Admin Trade Name Frejaguar PRN Reason Stop Dose Admin Fluorescein Sodium 1 mg 09/10/25 00:09 Fluorescein Sodium 1mg Strip OP 09/10/25 00:10 ONCE ONE Tetracaine HCl 0 ml 09/10/25 00:09 Tetracaine 0.5% Opth Priya 15ml OP 09/10/25 00:10 ONCE ONE Medical Decision Narrative: In summary, this 60-year-old male with Caridi described in the HPI presents to the emergency department today with right eye pain after getting sawdust in the eye 12 hours prior to arrival. On initial evaluation patient is hemodynamically stable, afebrile, GCS 15, physical exam is notable for good visual acuity with his baseline correction, he is 20/20 with both eyes open and his glasses on. The affected eye is 20/30 with glasses. Intraocular pressures are normal. Fluorescein exam demonstrates corneal ulcer of the right eye. Differential diagnosis includes but is not limited to corneal abrasion, corneal ulcer, foreign body was considered but I did not appreciate 1 on exam. Patient received tetracaine and fluorescein for the Rodriguez lamp exam. Because of the presence of ulceration and it being the weekend when it will likely be more difficult for him to have follow-up with ophthalmology, I did reach out to for an ophthalmology consult. I spoke with Dr. Jimenez with ophthalmology who recommended transfer to [facility] for ophthalmology evaluation because he would not be able to be seen by ophthalmology for nearly 36 hours which would increase his risk of infection if there does happen to be a small lingering foreign body and so that they can prescribe appropriate antibiotics. She does not recommend any additional treatment in this ER. I appreciate her recommendations. Patient was reassessed immediately prior to transfer. He is agreeable to the plan for transfer. He remains in stable condition. He would prefer to go by private vehicle which I believe is reasonable. He and are given instructions on transfer to go directly to [facility] and not make stops along the way. They indicated understanding and he was transferred in stable condition by private vehicle Critical Care Critical Care Time Critical Care Time: No
[2025-09-10] MEDS: TETRACAINE 0.5% OPTH SOL 15ML OP (01:00)
[2025-09-10] MEDS: FLUORESCEIN SODIUM 1MG STRIP 1 MG OP (01:00)
[2025-09-10 01:11] VITALS: BP 134/88; PULSE 64; RESP 18; TEMP 37.2; O2SAT 98
== END 2025-09-10 01:12 | disposition short-term general hospital (02) ==
PROVIDERS: Emergency Provider Emergency Medicine; PCP Family Medicine
DX: H16.001 Unspecified corneal ulcer, right eye (principal); H57.11 Ocular pain, right eye; W44.8XXA Other foreign body entering into or through a natural orifice, initial encounter
CPT/HCPCS: 99285